=== PATIENT | female | born 1985 | race Caucasian/White ===

== ENCOUNTER 2020-07-29 10:39 | Emergency (ER) | payer OTHER ==
[~2020-07-29] VITALS: Ht 175.3 cm; Wt 88.9 kg
[2020-07-29 10:42] VITALS: BP 114/57
[2020-07-29] MEDS ORDERED: HYDROcodone/APAP 5/325 TABLET PO ONE (12:30)
[2020-07-29] MEDS ORDERED: HYDROcodone/APAP 5/325 TABLET ONE (13:31)
--- NOTE | 2020-07-29 13:39 | NUR ---
SPLINT NOTED TO BE IN PLACE LEFT FIFTH DIGIT. PT MEDICATED FOR PAIN AND GIVEN INCENTIVE SPIROMETER WITH TEACHING. PT STATES RIDE HAS ARRIVED AND GIVEN DISCHARGE PAPERS
== END 2020-07-29 13:42 | disposition home or self-care (01) ==
LOC: ED 12:42
DX: S62.667A Nondisplaced fracture of distal phalanx of left little finger, initial encounter for closed fracture (principal); S20.211A Contusion of right front wall of thorax, initial encounter; F17.210 Nicotine dependence, cigarettes, uncomplicated; V86.59XA Driver of other special all-terrain or other off-road motor vehicle injured in nontraffic accident, initial encounter; Y93.89 Activity, other specified; Y92.89 Other specified places as the place of occurrence of the external cause; Y99.8 Other external cause status
CPT/HCPCS: 29130; 99284